=== PATIENT | female | born 1980 | race Caucasian/White ===

== ENCOUNTER → 2022-03-17 | Day surgery (SDC) | payer OTHER ==
[~2022-03-17] VITALS: Ht 165.1 cm; Wt 77.1 kg
[~2022-03-17] MED LIST: ADDERALL 30 MG30 MG PO; ADDERALL XR 3030 MG PO; COLACE100 MG PO; MOTRIN600 MG PO; PERCOCET 5-3251 EACH PO; WELLBUTRIN XL150 MG PO
[2022-03-17 08:16] LABS: HCG (URINE) SCREEN NEGATIVE (NEGATIVE)
[2022-03-17 09:05] LABS: HCT 39.7 % (37.0-47.0); HGB 13.6 g/dl (12.5-16.0); MCH 30.8 pg (25.0-31.0); MCHC 34.3 g/dL (32.0-36.0); MCV 89.8 fL (78.0-100.0); MPV 10.9 fL (6.0-9.5); RBC 4.42 M/uL (4.20-5.40); RDW 12.2 % (11.5-14.0); WBC 6.3 K/uL (4.0-10.5)
== END | disposition home or self-care (01) ==
LOC: FAS 08:02
PROVIDERS: Obstetrics & Gynecology
DX: N87.9 Dysplasia of cervix uteri, unspecified (principal); N72 Inflammatory disease of cervix uteri; N80.0 Endometriosis of uterus; D25.1 Intramural leiomyoma of uterus
CPT/HCPCS: 36415; 84703; 86850; 86900; 86901; 87088; J0690; J1100; J1170; J1885; J2250; J2405; J2704; J3010; J7120